=== PATIENT | female | born 1945 | race Caucasian/White ===

== ENCOUNTER 2018-01-18 10:31 | Day surgery (SDC) ==
[2018-01-18 11:07] VITALS: TEMP 98.4
[2018-01-18] MEDS ORDERED: LIDOCAINE 1% 20 ML MDV ID STA (11:07)
[2018-01-18] MEDS ORDERED: DIPRIVAN 20 ML VIAL IVP ONE (11:26)
[2018-01-18 12:32] VITALS: BP 125/67
--- NOTE | 2018-01-19 10:17 | OP ---
PROCEDURE: COLONOSCOPY TO THE CECUM WITH BIOPSY. ENDOSCOPIST: Christopher DOBSON M.D. INDICATION: CHANGE IN BOWEL HABITS. INSTRUMENT: [id number]. MEDICATION: PER ANESTHESIA. PROCEDURE: The patient was positioned for colonoscopy. The digital rectal exam was negative. The colonoscope was inserted through the anus and advanced to the cecum. The cecum was identified using the ileocecal valve and the appendiceal orifice as landmarks. The scope was slowly withdrawn through an adequately prepped colon. Terminal ileum intubated and is normal. The right colon was normal in appearance and biopsies were obtained. A 2 mm polyp is removed using cold biopsy forceps in the ascending colon. Diverticulosis noted throughout the left colon. Retroflex exam otherwise normal. Withdrawal time 6 minutes and 38 seconds. PLAN: 1. Review pathology with anticipated repeat colonoscopy in 5 years. CC: DR. GONZALO ARNDT
== END 2018-01-18 12:30 | disposition home or self-care (01) ==
LOC: SURG 10:31
PROVIDERS: ATTEND Internal Medicine Gastroenterology
DX: R19.4 Change in bowel habit (principal); D12.2 Benign neoplasm of ascending colon